=== PATIENT | male | born 1975 | race Caucasian/White ===

== ENCOUNTER 2019-12-30 16:10 | Emergency (ER) | payer OTHER ==
[~2019-12-30] VITALS: Ht 193 cm; Wt 99.8 kg
[2019-12-30 16:14] VITALS: Ht 193 cm; Wt 99.8 kg
[2019-12-30 17:31] LABS: BASOPHIL % 1.4 % (0-2); PLATELET COUNT 303 x10^3mcL (130-400); RED CELL DISTRIBUTION WIDTH 14.7 % (11.5-14.5)
[2019-12-30 17:56] LABS: CALCIUM 8.7 mg/dL (8.5-10.1); CARBON DIOXIDE 28.7 mmol/L (21-32); CHLORIDE SERUM 108 mmol/L (98-107); CREATININE SERUM 0.8 mg/dL (0.7-1.3); GFR1 > 60 mL/min; GLUCOSE SERUM 79 mg/dL (74-106); POTASSIUM SERUM 4.1 mmol/L (3.5-5.1); SODIUM SERUM 145 mmol/L (136-145)
[2019-12-30 18:01] LABS: ALBUMIN 3.7 g/dL (3.4-5.0); ALKALINE PHOSPHATASE 84 U/L (46-116); ALT/SGPT 67 U/L (16-63); AST/SGOT 42 U/L (15-37); BILIRUBIN TOTAL 0.3 mg/dL (0.20-1.00); TOTAL PROTEIN, SERUM 7.1 g/dL (6.4-8.2)
[2019-12-30 20:51] VITALS: BP 113/69
== END 2019-12-30 20:52 | disposition home or self-care (01) ==
LOC: ED 16:10
PROVIDERS: Emergency Medicine
DX: F10.129 Alcohol abuse with intoxication, unspecified (principal); I10 Essential (primary) hypertension; Y90.8 Blood alcohol level of 240 mg/100 ml or more; V43.52XA Car driver injured in collision with other type car in traffic accident, initial encounter; Y93.I9 Activity, other involving external motion; Y92.488 Other paved roadways as the place of occurrence of the external cause; Y99.8 Other external cause status
CPT/HCPCS: 82962; G0480